=== PATIENT | female | born 1970 | race Two or more races ===

== ENCOUNTER 2019-06-29 09:07 | Day surgery (SDC) | payer OTHER | END 2019-06-29 14:05 | disposition home or self-care (01) | LOC: AMB-ENDOS 09:07 | DX: C20 Malignant neoplasm of rectum (principal) ==

== ENCOUNTER 2019-07-27 11:15 | Inpatient (IN) | payer OTHER ==
[~2019-07-27] VITALS: Ht 157.5 cm; Wt 122.5 kg
[2019-07-27] MEDS ORDERED: LEVO-T112 MCG PO (14:46)
[2019-08-06] MEDS ORDERED: VITAMIN B-12500 MC3 SL (11:58)
[2019-08-06] MEDS ORDERED: INTEGRA F CAPS1 EACH PO (11:58)
[2019-08-06] MEDS ORDERED: PERCOCET 5-3251 EACH PO (11:58)
[2019-08-06] MEDS ORDERED: OMEPRAZOLE MAGN20 MG PO (11:58)
== END 2019-08-06 15:38 | disposition home or self-care (01) | DRG 331 ==
LOC: O/R 11:15 → SURH 07-31 06:00 → SURG 07-31 07:00 → SURH 07-31 15:40
PROVIDERS: Obstetrics & Gynecology Gynecologic Oncology; ADMIT Surgery
PROC: 0UT94ZZ Resection of Uterus, Percutaneous Endoscopic Approach (ICD-10-PCS; 2019-07-31)
PROC: 0UT Female Reproductive System, Resection (ICD-10-PCS; 2019-07-31)
PROC: 0D1B4Z4 Bypass Ileum to Cutaneous, Percutaneous Endoscopic Approach (ICD-10-PCS; principal; 2019-07-31 07:00)
PROC: 0DTP4ZZ Resection of Rectum, Percutaneous Endoscopic Approach (ICD-10-PCS; 2019-07-31 07:00)
DX: C20 Malignant neoplasm of rectum (principal); D25.1 Intramural leiomyoma of uterus; E66.01 Morbid (severe) obesity due to excess calories; R50.82 Postprocedural fever

== ENCOUNTER 2020-06-10 11:00 | Inpatient (IN) | payer OTHER ==
[~2020-06-10 11:00] MED LIST: INTEGRA F CAPS1 EACH PO; LEVO-T112 MCG PO; OMEPRAZOLE MAGN20 MG PO; PERCOCET 5-3251 EACH PO; VITAMIN B-12500 MC3 SL
[2020-06-13] MEDS ORDERED: NORVASC5 MG PO (15:21)
[2020-06-22] MEDS ORDERED: CHOLESTYRAMINE P4 GM PO (15:06)
[2020-06-22] MEDS ORDERED: OXYC1TAB9 PO (15:07)
== END 2020-06-22 16:16 | disposition home or self-care (01) | DRG 330 ==
LOC: SURH 06-17 06:30 → O/R 06-17 06:30 → SURH 06-17 11:00
PROVIDERS: ADMIT Surgery; ATTEND Surgery
PROC: 0DBB0ZZ Excision of Ileum, Open Approach (ICD-10-PCS; principal; 2020-06-17 11:00)
DX: Z43.2 Encounter for attention to ileostomy (principal); Z68.42 Body mass index [BMI] 45.0-49.9, adult; E66.01 Morbid (severe) obesity due to excess calories; E86.0 Dehydration; D64.9 Anemia, unspecified